=== PATIENT | female | born 1995 | race Hispanic/Latino ===

== ENCOUNTER 2022-03-02 11:25 | Day surgery (SDC) | payer BC, SELFPAY ==
[2022-03-02] MEDS ORDERED: hydrALAZINE 20 MG/ML VIAL SLOW IVP PRN (11:50)
[2022-03-02] MEDS ORDERED: Promethazine HCl 25 MG/ML VIAL IM PRN (11:57)
[2022-03-02] MEDS ORDERED: Ondansetron PF 4 MG/2 ML Vial IVP PRN (11:57)
[2022-03-02] MEDS ORDERED: hydrALAZINE 20 MG/ML VIAL ONE (12:03)
[2022-03-02 13:06] VITALS: BP 168/92
[2022-03-02 13:13] VITALS: BMI 43.7
[2022-03-02] MEDS ORDERED: cefTRIAXone\\ROCEPHIN 1 GM in Sodium Chloride 0.9% 100 ML IVPB SCH (14:00)
[2022-03-02] MEDS ORDERED: Labetalol HCl 100 MG TAB PO SCH ×2 (14:00→21:00)
[2022-03-02 15:10] LABS: #Monocytes 0.4 10x3/uL (0.0-1.1); #Neutrophils 12.4 10x3/uL (1.5-8.4); %Basophils 0.3 % (0.0-2.0); %Eosinophils 0.1 % (0.0-6.0); %Lymphocytes 10.2 % (18.0-47.0); %Monocytes 2.5 % (0.0-10.0); %Neutrophils 85.9 % (40.0-75.0); Hemoglobin 12.7 g/dL (12.0-15.5); Mean Corpuscular HGB CONC 33.4 g/dL (32.0-36.0); Mean Corpuscular Hemoglobin 28.7 pg (27.0-33.0); Platelet Count 258 10x3/uL (150-450); Red Blood Cell (RBC) Count 4.42 10x6/uL (3.90-5.03); White Blood Cell (WBC) Count 14.4 10x3/uL (3.5-10.5)
[2022-03-02 15:11] LABS: SARS-CoV-2 NAA Rapid Test Not Detected (NotDetected)
[2022-03-02 15:17] LABS: Creatinine, Urine 82.88 mg/dL (47-110)
[2022-03-02 15:22] LABS: ALT (SGPT) 9 U/L (8-55); AST (SGOT) 13 U/L (5-34); Albumin 3.7 g/dL (3.5-5.0); Alkaline Phosphatase 80 U/L (40-110); Anion Gap 16 mmol/L (10-20); BUN (Urea Nitrogen) 9 mg/dL (7.0-18.7); Bilirubin, Total 0.6 mg/dL (0.2-1.2); Calc. Creatinine Clearance 213 mL/min (70-130); Calcium 9.7 mg/dL (7.8-10.44); Carbon Dioxide 19 mmol/L (22-29); Chloride 103 mmol/L (98-107); Globulin 3.7 g/dL (2.4-3.5); Glucose 105 mg/dL (70-105); Potassium 3.8 mmol/L (3.5-5.1); Protein, Total 7.4 g/dL (6.0-8.3); Sodium 134 mmol/L (136-145)
[2022-03-02] MEDS ORDERED: Betamet Acet/Betamet Na Ph 30 MG/5 ML VIAL IM SCH (16:00)
[2022-03-02] MEDS ORDERED: Calcium Gluc 4.6 MEQ/10 ML (100 MG/ML) SLOW IVP PRN (16:47)
[2022-03-02] MEDS ORDERED: Lorazepam 2 MG/ML VIAL SLOW IVP PRN (16:47)
[2022-03-02] MEDS ORDERED: Magnesium Sulfate 20 gm/500 ml 20 GM/500 ML BAG IVPB SCH ×2 (17:00)
[2022-03-02 19:20] LABS: Troponin I Less than 0.010 ng/mL (< 0.028)
== END 2022-03-02 18:52 | disposition critical access hospital (66) ==
LOC: CSHLD/OP 11:25
PROVIDERS: ATTEND Obstetrics & Gynecology
DX: O11.3 Pre-existing hypertension with pre-eclampsia, third trimester (principal); O10.913 Unspecified pre-existing hypertension complicating pregnancy, third trimester; O36.5930 Maternal care for other known or suspected poor fetal growth, third trimester, not applicable or unspecified; O41.03X0 Oligohydramnios, third trimester, not applicable or unspecified; O24.410 Gestational diabetes mellitus in pregnancy, diet controlled; O99.213 Obesity complicating pregnancy, third trimester; O35.8XX0 Maternal care for other (suspected) fetal abnormality and damage, not applicable or unspecified; O23.43 Unspecified infection of urinary tract in pregnancy, third trimester; N39.0 Urinary tract infection, site not specified; B96.4 Proteus (mirabilis) (morganii) as the cause of diseases classified elsewhere; Z3A.29 29 weeks gestation of pregnancy; Z20.822 Contact with and (suspected) exposure to COVID-19
CPT/HCPCS: 76805; 80053; 82570; 83880; 84156; 84484; 85025; J0360; J0696; J0702; J3475; J3490; U0002

== ENCOUNTER 2023-08-08 05:00 | Inpatient (IN) | payer MEDICAID, SELFPAY ==
[2023-08-08] MEDS ORDERED: Acetaminophen 500 MG TAB PO PRN (19:02)
[2023-08-08] MEDS ORDERED: Tranexamic Acid 1,000 MG/10 ML VIAL IVP PRN (19:02)
[2023-08-08] MEDS ORDERED: Docusate 100 MG CAP PO PRN (19:02)
[2023-08-08] MEDS ORDERED: hydrALAZINE 20 MG/ML VIAL SLOW IVP PRN (19:02)
[2023-08-08] MEDS ORDERED: Misoprostol 200 MCG TAB PR PRN (19:02)
[2023-08-08] MEDS ORDERED: Promethazine HCl 25 MG/ML VIAL IM PRN (19:02)
[2023-08-08] MEDS ORDERED: Carboprost 250 MCG/ML AMP IM PRN (19:02)
[2023-08-08] MEDS ORDERED: Ondansetron PF 4 MG/2 ML Vial IVP PRN (19:02)
[2023-08-08] MEDS ORDERED: Oxytocin 30 units/NS 500 ML 500 ML IV SCH (19:15)
[2023-08-08 19:51] VITALS: BMI 39.4
[2023-08-08 19:56] LABS: Hematocrit 38.6 % (34.9-44.5); Hemoglobin 12.9 g/dL (12.0-15.5); Mean Corpuscular HGB CONC 33.4 g/dL (32.0-36.0); Mean Corpuscular Hemoglobin 29.4 pg (27.0-33.0); Mean Corpuscular Volume 87.9 fl (81.6-98.3); Mean Platelet Volume 12.6 fl (7.4-10.4); Platelet Count 255 10x3/uL (150-450); RBC Distribution Width 13.3 % (11.5-14.5); Red Blood Cell (RBC) Count 4.39 10x6/uL (3.90-5.03); White Blood Cell (WBC) Count 11.1 10x3/uL (3.5-10.5)
[2023-08-08] MEDS ORDERED: Lidocaine 1% (PF) 30 ML VIAL SC PRN (20:09)
[2023-08-08] MEDS ORDERED: Ibuprofen 800 MG TAB PO PRN (20:09)
[2023-08-08 20:32] LABS: Syphilis Antibody Nonreactive (Nonreactive); Syphilis Antibody Index 0.05 S/CO (<1.00 Non-Reactive)
[2023-08-08 20:34] LABS: HBSAg Index 0.16 S/CO (0-0.99); Hep B Surf Ag - L&D Non-Reactive S/CO (NonReactive)
[2023-08-08 20:56] LABS: ALT (SGPT) 12 U/L (8-55); AST (SGOT) 14 U/L (5-34); Albumin 3.6 g/dL (3.5-5.0); Alkaline Phosphatase 145 U/L (40-110); Anion Gap 18 mmol/L (10-20); BUN (Urea Nitrogen) 9 mg/dL (7.0-18.7); Bilirubin, Total 0.5 mg/dL (0.2-1.2); Calc. Creatinine Clearance 172 mL/min (70-130); Calcium 9.6 mg/dL (7.8-10.44); Carbon Dioxide 18 mmol/L (22-29); Chloride 106 mmol/L (98-107); Estimated GFR 112; Globulin 3.3 g/dL (2.4-3.5); Glucose 136 mg/dL (70-105); Potassium 4.2 mmol/L (3.5-5.1); Protein, Total 6.9 g/dL (6.0-8.3); Sodium 138 mmol/L (136-145)
[2023-08-08] MEDS ORDERED: Labetalol HCl 200 MG TAB PO SCH (21:00)
[2023-08-08] MEDS ORDERED: Misoprostol 100 MCG TAB VAG SCH (21:15)
[2023-08-08] MEDS ORDERED: Penicillin G Potassium 5 MILL.UNITS in Sodium Chloride 0.9% 100 ML IVPB SCH (21:15)
[2023-08-08] MEDS: Lactated Ringer's 1,000 ML IV SCH (21:40)
[2023-08-08 21:41] LABS: Creatinine, Urine 187.38 mg/dL (47-110)
[2023-08-09] MEDS ORDERED: Penicillin G 2.5 MILL.units 2.5 MILL.UNITS in Premix 1 BAG IVPB SCH (01:00)
[2023-08-09] MEDS: Penicillin G 2.5 MILL.units 2.5 MILL.UNITS in Premix 1 BAG IVPB SCH ×2 (01:20→05:47)
[2023-08-09] MEDS ORDERED: Calcium Gluc 4.6 MEQ/10 ML (100 MG/ML) SLOW IVP PRN (01:43)
[2023-08-09] MEDS ORDERED: hydrALAZINE 20 MG/ML VIAL SLOW IVP PRN ×2 (01:43→05:21)
[2023-08-09] MEDS ORDERED: Lorazepam 2 MG/ML VIAL SLOW IVP PRN (01:43)
[2023-08-09] MEDS ORDERED: Labetalol HCl 100 MG/20 ML VIAL SLOW IVP PRN ×2 (01:43)
[2023-08-09] MEDS ORDERED: fentaNYL 50 mcg/mL 1 mL Vial SLOW IVP SCH (01:55)
[2023-08-09] MEDS: Magnesium Sulfate 20 gm/500 ml 20 GM/500 ML BAG IVPB SCH ×2 (02:00→08:43)
[2023-08-09] MEDS: Labetalol HCl 100 MG/20 ML VIAL SLOW IVP PRN ×2 (02:05→03:38)
[2023-08-09] MEDS ORDERED: Misoprostol 200 MCG TAB ONE (04:59)
[2023-08-09] MEDS ORDERED: Carboprost 250 MCG/ML AMP ONE (04:59)
[2023-08-09] MEDS ORDERED: Tranexamic Acid 1,000 MG/10 ML VIAL ONE (04:59)
[2023-08-09] MEDS ORDERED: Oxytocin 30 units/NS 500 ML 500 ML ONE (04:59)
[2023-08-09] MEDS ORDERED: Methylergonovine 0.2 MG/ML VIAL ONE (04:59)
[2023-08-09] MEDS ORDERED: fentaNYL 50 mcg/mL 1 mL Vial ONE (05:00)
[2023-08-09] MEDS ORDERED: Ondansetron PF 4 MG/2 ML Vial IVP PRN (05:21)
[2023-08-09] MEDS ORDERED: Bisacodyl 10 MG SUPP PR PRN ×2 (05:21→07:18)
[2023-08-09] MEDS ORDERED: Milk Of Magnesia 30 ML UDCUP PO PRN ×2 (05:21→07:18)
[2023-08-09] MEDS ORDERED: Lanolin Ointment 7 GM TUBE TOP PRN (05:21)
[2023-08-09] MEDS ORDERED: Preparation H Ointment 28 GM TUBE PR PRN (05:21)
[2023-08-09] MEDS ORDERED: Boostrix 0.5 ML (Tdap) VIAL (>/=7 yrs of age) IM ONE (05:21)
[2023-08-09] MEDS ORDERED: KETAMINE 100 MG/ML (5ML VIAL) ONE (05:22)
[2023-08-09] MEDS ORDERED: Ondansetron PF 4 MG/2 ML Vial ONE (05:26)
[2023-08-09] MEDS ORDERED: Metoprolol Tartrate 5 MG/5 ML VIAL ONE (05:33)
[2023-08-09] MEDS: Lactated Ringer's 1,000 ML IV SCH (05:46)
[2023-08-09] MEDS ORDERED: CEFAZOLIN 2 GM VIAL ONE (05:56)
[2023-08-09] MEDS ORDERED: Ibuprofen 800 MG TAB PO SCH (06:00)
[2023-08-09] MEDS: NIFEdipine XL 30 MG ER.TAB PO SCH (08:43)
[2023-08-09] MEDS: Ibuprofen 800 MG TAB PO SCH ×2 (08:44→15:46)
[2023-08-09] MEDS: Prenatal Vitamin 1 TAB PO SCH (08:45)
[2023-08-09] MEDS: Ferrous Sulfate 325 MG TAB PO SCH ×2 (08:45→15:46)
[2023-08-09] MEDS ORDERED: Labetalol HCl 200 MG TAB PO SCH (09:00)
[2023-08-09] MEDS ORDERED: Docusate 100 MG CAP PO SCH (09:00)
[2023-08-09] MEDS ORDERED: Prenatal Vitamin 1 TAB PO SCH (09:00)
[2023-08-09] MEDS: Docusate 100 MG CAP PO SCH (22:25)
[2023-08-10] MEDS: Ibuprofen 800 MG TAB PO SCH ×3 (00:02→17:02)
[2023-08-10] MEDS: Magnesium Sulfate 20 gm/500 ml 20 GM/500 ML BAG IVPB SCH (02:15)
[2023-08-10] MEDS: Ferrous Sulfate 325 MG TAB PO SCH ×2 (07:35→17:02)
[2023-08-10] MEDS: Docusate 100 MG CAP PO SCH ×2 (07:36→08:51)
[2023-08-10] MEDS: Prenatal Vitamin 1 TAB PO SCH (08:51)
[2023-08-10] MEDS: NIFEdipine XL 30 MG ER.TAB PO SCH (08:52)
[2023-08-11] MEDS: Docusate 100 MG CAP PO SCH ×2 (00:06→07:53)
[2023-08-11] MEDS: Ibuprofen 800 MG TAB PO SCH ×2 (00:06→07:53)
[2023-08-11] MEDS: Ferrous Sulfate 325 MG TAB PO SCH (07:53)
[2023-08-11] MEDS: Prenatal Vitamin 1 TAB PO SCH (07:53)
[2023-08-11] MEDS: NIFEdipine XL 30 MG ER.TAB PO SCH (07:53)
[2023-08-11 12:15] VITALS: BP 148/95; TEMP 98.4
== END 2023-08-11 14:10 | disposition home or self-care (01) | DRG 806 ==
LOC: CSHLD 18:08 → CSHPP 08-10 06:45
PROVIDERS: ADMIT Obstetrics & Gynecology; ATTEND Obstetrics & Gynecology
PROC: 10E0XZZ Delivery of Products of Conception, External Approach (ICD-10-PCS; principal; 2023-08-09)
PROC: 3E0P7VZ Introduction of Hormone into Female Reproductive, Via Natural or Artificial Opening (ICD-10-PCS; 2023-08-09)
PROC: 0HQ9XZZ Repair Perineum Skin, External Approach (ICD-10-PCS; 2023-08-09)
PROC: 0UQMXZZ Repair Vulva, External Approach (ICD-10-PCS; 2023-08-09)
PROC: 3E033VJ Introduction of Other Hormone into Peripheral Vein, Percutaneous Approach (ICD-10-PCS; 2023-08-09)
DX: O14.14 Severe pre-eclampsia complicating childbirth (principal); O98.32 Other infections with a predominantly sexual mode of transmission complicating childbirth; Z37.0 Single live birth; O24.425 Gestational diabetes mellitus in childbirth, controlled by oral hypoglycemic drugs; Z3A.37 37 weeks gestation of pregnancy; A63.0 Anogenital (venereal) warts; O70.0 First degree perineal laceration during delivery; O71.82 Other specified trauma to perineum and vulva; O71.3 Obstetric laceration of cervix
CPT/HCPCS: 36415; 36416; 80053; 82570; 84156; 85027; 86780; 86850; 86900; 86901; 87340; J2405; J2540; J3010; J3475; J3490; J7120

== ENCOUNTER 2025-07-04 07:21 | Emergency (ER) | payer MEDICAID, SELFPAY ==
[2025-07-04 08:03] LABS: #Basophils 0.05 10x3/uL (0.0-0.2); #Eosinophils 0.05 10x3/uL (0.0-0.5); #Monocytes 0.41 10x3/uL (0.0-1.1); #Neutrophils 8.86 10x3/uL (1.5-8.4); %Basophils 0.4 % (0.0-2.0); %Eosinophils 0.4 % (0.0-6.0); %Lymphocytes 19.7 % (18.0-47.0); %Monocytes 3.5 % (0.0-10.0); %Neutrophils 75.7 % (40.0-75.0); Hematocrit 45.2 % (34.9-44.5); Hemoglobin 15.0 g/dL (12.0-15.5); Mean Corpuscular Hemoglobin 27.5 pg (27.0-33.0); Mean Corpuscular Volume 82.9 fL (81.6-98.3); Platelet Count 252 10x3/uL (150-450); Red Blood Cell (RBC) Count 5.45 10x6/uL (3.90-5.03); White Blood Cell (WBC) Count 11.70 10x3/uL (3.5-10.5)
[2025-07-04 08:19] LABS: ALT (SGPT) 66 U/L (Less than 34); AST (SGOT) 69 U/L (11-34); Albumin 3.9 g/dL (3.1-4.5); Alkaline Phosphatase 122 U/L (40-110); Anion Gap 20 mmol/L (10-20); BUN (Urea Nitrogen) 10 mg/dL (7.0-18.7); Bilirubin, Total 0.6 mg/dL (0.3-1.2); Calc. Creatinine Clearance 0 mL/min (70-130); Calcium 9.0 mg/dL (7.8-10.44); Carbon Dioxide 18 mmol/L (22-29); Chloride 103 mmol/L (98-107); Globulin 3.8 g/dL (2.4-3.5); Glucose 294 mg/dL (70-105); Lipase 32 U/L (8-78); Potassium 4.8 mmol/L (3.5-5.1); Sodium 136 mmol/L (136-145)
[2025-07-04 08:20] LABS: Troponin I Less than 0.010 ng/mL (< 0.028)
[2025-07-04 08:25] LABS: Glucose, Urine (Dipstick) >=1000 mg/dL (Negative); Leukocyte Negative (Negative); Protein, Urine (Dipstick) 100 mg/dL (Neg-Trace); Specific Gravity, Urine 1.020 (1.005-1.030)
[2025-07-04 08:33] LABS: Bacteria/HPF 2+ HPF (None Seen); CAUTI Indications for Culture Pregnancy; RBC/HPF 0-3 HPF (0-3)
[2025-07-04 08:35] LABS: Urine Culture Reflex Yes Yes
== END 2025-07-04 11:00 | disposition home or self-care (01) ==
LOC: CSHERS 07:21
DX: O99.611 Diseases of the digestive system complicating pregnancy, first trimester (principal); K80.20 Calculus of gallbladder without cholecystitis without obstruction; O26.611 Liver and biliary tract disorders in pregnancy, first trimester; K76.9 Liver disease, unspecified; Z75.8 Other problems related to medical facilities and other health care; Z3A.01 Less than 8 weeks gestation of pregnancy
CPT/HCPCS: 76705; 76856; 80053; 81001; 83690; 84484; 84702; 85025; 87086; 93005; 93976; 96374; 96375